=== PATIENT | female | born 1995 | race African-American/Black ===

== ENCOUNTER 2022-02-27 13:43 | Outpatient (CLI) | payer MEDICAID, SELFPAY ==
--- NOTE | 2022-02-27 14:00 | CRLHL7_ITS ---
For Patients: As a result of the Cures Act, medical imaging exams and procedure reports are released immediately into your electronic medical record. You may view this report before your referring provider. If you have questions, please contact your health care provider. INDICATION: First trimester scan, establish dates. COMPARISON: None. TECHNIQUE: Real-time black-scale imaging of the pelvis was performed. FINDINGS: Sonographic imaging demonstrates a single living intrauterine gestation. The embryo demonstrates a regular cardiac rate measuring 185-193 beats per minute. The embryo`s crown-rump length measurement of 2.0 cm corresponds to a gestational age of 8 weeks 4 days with a sonographic due date of 10/05/2022. There is a normal-appearing yolk sac. There are no gross abnormalities noted within the embryo at this early state of development. The gestational sac has a normal appearance. There is a 0.6 x 2.0 x 1.6 cm perigestational hemorrhage. The amount of fluid within the sac appears appropriate for gestational age. The cervix is closed. The myometrium appears normal. The ovaries are of normal size. Corpus luteal cyst right ovary. Simple right parovarian cyst measuring 2 cm. There are no suspicious fluid collections noted in the cul-de-sac. IMPRESSION: Single living intrauterine with sonographic gestational age 8 weeks 4 days and sonographic due date 10/05/2022. Subchorionic hemorrhage measuring 0.6 x 2.0 x 1.6 cm. Dictated by Roque Pearl MD @ 02/27/2022 3:28:34 PM (Electronically Signed)
== END 2022-02-27 13:44 | disposition home or self-care (01) ==
LOC: US 13:45
PROVIDERS: Visit Provider Advanced Practice Midwife
DX: Z34.91 Encounter for supervision of normal pregnancy, unspecified, first trimester (principal); O20.9 Hemorrhage in early pregnancy, unspecified; Z3A.08 8 weeks gestation of pregnancy
CPT/HCPCS: 76817; 86592; 86703; 86762; 86803; 86850; 86900; 86901; 87086; 87340; 87491; 87591

== ENCOUNTER 2022-07-17 13:55 | Outpatient (CLI) | payer MEDICAID, SELFPAY ==
--- NOTE | 2022-07-17 14:00 | CRLHL7_ITS ---
For Patients: As a result of the Century Cures Act, medical imaging exams and procedure reports are released immediately into your electronic medical record. You may view this report before your referring provider. If you have questions, please contact your health care provider. INDICATION: Third trimester scan, evaluate growth. COMPARISON: 02/27/2022 TECHNIQUE: Real time black scale imaging of the fetus was performed. FINDINGS: Sonographic imaging demonstrates a single living intrauterine gestation. Fetus demonstrates a regular cardiac rate of 150 beats per minute. Fetus has a vertex position. The placenta lies posteriorly. Amniotic fluid volume appears normal and there is a single deepest vertical pocket: 5.8 cm. The estimated weight is 1482gm which lies at the 96th %. BPD greater than 87th percentile. HC 94th percentile. AC 96th percentile. FL 50th percentile. The HC/AC ratio measures 1.07 range (0.97-1.18). IMPRESSION: Sonographic gestational age 30 weeks 2 days and sonographic due date 09/23/2022. Sonographic age 16 days ahead of the clinical age. Estimated weight 96th percentile. Abdominal circumference 96th percentile. BPD greater than 97th percentile. Dictated by Roque Pearl MD @ 07/20/2022 8:59:26 AM (Electronically Signed)
== END 2022-07-17 13:56 | disposition home or self-care (01) ==
LOC: US 13:55
PROVIDERS: PCP Family Medicine; Visit Provider Advanced Practice Midwife
DX: Z34.93 Encounter for supervision of normal pregnancy, unspecified, third trimester (principal); Z3A.30 30 weeks gestation of pregnancy
CPT/HCPCS: 76816; 86592

== ENCOUNTER 2022-08-19 12:11 | Outpatient (CLI) | payer MEDICAID, SELFPAY ==
--- NOTE | 2022-08-19 12:15 | CRLHL7_ITS ---
For Patients: As a result of the Century Cures Act, medical imaging exams and procedure reports are released immediately into your electronic medical record. You may view this report before your referring provider. If you have questions, please contact your health care provider. INDICATION: Third trimester scan, evaluate growth. COMPARISON: 07/17/2022 TECHNIQUE: Real time black scale imaging of the fetus was performed. FINDINGS: Sonographic imaging demonstrates a single living intrauterine gestation. Fetus demonstrates a regular cardiac rate of 138 beats per minute. Fetus has a vertex position. The placenta lies posteriorly. Amniotic fluid volume appears normal and there is a single deepest vertical pocket: 4.8 cm. The estimated weight is 2420gm which lies at the 88th %. On the prior OB ultrasound exam dated 07/17/2022 the estimated weight was at the 96th%. BPD 94th percentile. HC greater than 97th percentile. AC 95th percentile. FL 28th percentile. The HC/AC ratio measures 1.06 range (0.93-1.11). IMPRESSION: Sonographic gestational age 34 weeks 6 days and sonographic due date 09/24/2022. Sonographic age 15 days ahead of the clinical age. Estimated weight 88th percentile. Abdominal circumference 95th percentile. Dictated by Roque Pearl MD @ 08/19/2022 12:59:39 PM (Electronically Signed)
== END 2022-08-19 12:12 | disposition home or self-care (01) ==
LOC: US 12:12
PROVIDERS: PCP Family Medicine; Visit Provider Advanced Practice Midwife
DX: O36.63X0 Maternal care for excessive fetal growth, third trimester, not applicable or unspecified (principal); Z3A.34 34 weeks gestation of pregnancy
CPT/HCPCS: 76816

== ENCOUNTER 2022-08-28 08:33 | Outpatient (CLI) | payer MEDICAID, SELFPAY ==
--- NOTE | 2022-08-28 11:00 | CRLHL7_ITS ---
For Patients: As a result of the Century Cures Act, medical imaging exams and procedure reports are released immediately into your electronic medical record. You may view this report before your referring provider. If you have questions, please contact your health care provider. INDICATION: BMI greater than 40, history of macrosomia baby. TECHNIQUE: Ultrasound OB pelvis transabdominal, limited for biophysical profile. Real-time black-scale imaging of the fetus was performed without stress testing. COMPARISON: Obstetric ultrasound dated 08/19/2022. FINDINGS: Sonographic imaging demonstrates a single living intrauterine gestation. Fetus demonstrates a regular cardiac rate of 129 beats per minute. Fetus has a cephalic orientation. The placenta lies posteriorly. Amniotic fluid volume appears normal, single deepest pocket of 5.3 cm. Water Conservationist has noted motion, and tone, however respiratory activity was not observed. IMPRESSION: Biophysical profile of 01/21 (testing shaking shipping did not observe respiratory activity). Dictated by Makeda Vasquez MD @ 08/28/2022 12:50:38 PM (Electronically Signed)
--- NOTE | 2022-08-28 13:23 | PM.ANPROEV ---
[facility] Medical History (Updated 08/19/22 @ 13:37 by Socorro Preston CNM) History of delivery of macrosomal infant History of depression Obesity affecting Surgical History (Updated 03/14/22 @ 19:13 by Noemi Luong CNM) H/O tooth extraction Family History (Updated 03/14/22 @ 19:14 by Noemi Luong CNM) Mother Diabetes Maternal Grandmother CHF (congestive heart failure) Social History Smoking Status: Never smoker Little interest or pleasure in doing things: not at all Feeling down, depressed, or hopeless: not at all Meds Home Medications and Allergies Home Medications Medication Instructions Recorded Confirmed Type prenat.vits,salvador,[id number] 1 tab PO QDAY 02/27/22 08/28/22 History Allergies Allergy/AdvReac Type Severity Reaction Status Date / Time No Known Drug Allergies Allergy Verified 08/28/22 12:01 Focused Exam Airway Mallampti: II TM distance: >3 FB Anesthesia Risk Status Procedure Time Seen by Provider: 08:45 Date Seen: 08/28/22 Planned operative procedure(s): delivery History Anesthesia history: epidural History of anesthesia reactions: No Status Dentition: missing teeth (recent left lower molar removed) Risk Assessed to be at risk for difficult intubation: No Assessment and Plan Assessment and plan (1) Obesity affecting : Status: Acute (2) Supervision of other normal : Status: Acute Plan Third baby. epidural with previous 2. First they mentioned potential right sided curvature. they removed an epidural and restarted. This worked and she was comfortable. Second time no issues. due date 10/09. has been induced early in the past due to large baby. Planning epidural discussd timing and call coverage and potential difficult placement with increased BMI
== END 2022-08-28 08:34 | disposition home or self-care (01) ==
PROVIDERS: PCP Family Medicine; Visit Provider Anesthesiology
DX: O99.213 Obesity complicating pregnancy, third trimester (principal); O36.8390 Maternal care for abnormalities of the fetal heart rate or rhythm, unspecified trimester, not applicable or unspecified; Z3A.00 Weeks of gestation of pregnancy not specified
CPT/HCPCS: 76819

== ENCOUNTER 2022-09-04 12:09 | Outpatient (CLI) | payer MEDICAID, SELFPAY ==
--- NOTE | 2022-09-04 12:15 | CRLHL7_ITS ---
For Patients: As a result of the Century Cures Act, medical imaging exams and procedure reports are released immediately into your electronic medical record. You may view this report before your referring provider. If you have questions, please contact your health care provider. INDICATION: BMI <40; HX of macrosomic baby COMPARISON: 08/28/2022 TECHNIQUE: Real time black scale imaging of the fetus was performed. Without non-stress testing. FINDINGS: Sonographic imaging demonstrates a single living intrauterine gestation. Fetus demonstrates a regular cardiac rate of 131 beats per minute. Fetus has a vertex position. The amniotic fluid volume appears normal and there is a single deepest pocket measurement of 3.7 cm. The fetus was active and demonstrated normal breathing movements. There was normal flexion and extension of the trunk and extremities. IMPRESSION: Normal biophysical profile score of 8 out of 8. Dictated by Roque Pearl MD @ 09/04/2022 1:18:10 PM (Electronically Signed)
== END 2022-09-04 12:10 | disposition home or self-care (01) ==
PROVIDERS: PCP Family Medicine; Visit Provider Advanced Practice Midwife
DX: O36.63X0 Maternal care for excessive fetal growth, third trimester, not applicable or unspecified (principal)
CPT/HCPCS: 76819

== ENCOUNTER 2022-09-11 15:02 | Outpatient (CLI) | payer MEDICAID, SELFPAY ==
[2022-09-12 12:26] LABS: Strep B DNA Probe NEGATIVE (Negative)
[2022-09-12 13:46] LABS: Strep B Pen/Amox Allergy No
== END 2022-09-11 15:03 | disposition home or self-care (01) ==
LOC: NFLDREF 15:02
PROVIDERS: PCP Family Medicine; Visit Provider Advanced Practice Midwife
DX: Z34.83 Encounter for supervision of other normal pregnancy, third trimester (principal); Z3A.37 37 weeks gestation of pregnancy
CPT/HCPCS: 76816; 76819; 87081; 87653

== ENCOUNTER 2022-09-18 12:54 | Outpatient (CLI) | payer MEDICAID, SELFPAY ==
--- NOTE | 2022-09-18 13:00 | CRLHL7_ITS ---
For Patients: As a result of the Century Cures Act, medical imaging exams and procedure reports are released immediately into your electronic medical record. You may view this report before your referring provider. If you have questions, please contact your health care provider. INDICATION: BMI greater than 40 COMPARISON: 09/11/2022 TECHNIQUE: Real time black scale imaging of the fetus was performed. Without non-stress testing. FINDINGS: Sonographic imaging demonstrates a single living intrauterine gestation. Fetus demonstrates a regular cardiac rate of 138 beats per minute. Fetus has a vertex position. The amniotic fluid volume appears normal and there is a single deepest pocket measurement of 5.8 cm. The fetus was active and demonstrated normal breathing movements. There was normal flexion and extension of the trunk and extremities. IMPRESSION: Normal biophysical profile score of 8 out of 8. Dictated by Roque Pearl MD @ 09/19/2022 9:04:58 AM (Electronically Signed)
== END 2022-09-18 12:55 | disposition home or self-care (01) ==
LOC: US 12:55
PROVIDERS: PCP Family Medicine; Visit Provider Advanced Practice Midwife
DX: O99.213 Obesity complicating pregnancy, third trimester (principal); O36.63X0 Maternal care for excessive fetal growth, third trimester, not applicable or unspecified
CPT/HCPCS: 76819

== ENCOUNTER 2022-09-25 13:50 | Outpatient (CLI) | payer MEDICAID, SELFPAY ==
--- NOTE | 2022-09-25 14:00 | CRLHL7_ITS ---
For Patients: As a result of the Century Cures Act, medical imaging exams and procedure reports are released immediately into your electronic medical record. You may view this report before your referring provider. If you have questions, please contact your health care provider. INDICATION: BMI greater than 40. History of macrosomia with vacuum. COMPARISON: OB ultrasound 09/18/2022. TECHNIQUE: Real time black scale imaging of the fetus was performed without non-stress testing. FINDINGS: Sonographic imaging demonstrates a single living intrauterine gestation. The fetus demonstrates a regular cardiac rate of 131 beats per minute. The fetus has a cephalic orientation. The placenta lies posteriorly. Amniotic fluid volume appears normal with single deepest pocket measuring 6.0 cm (2/2). The fetus was active (2/2). There was normal flexion and extension of the trunk and extremities (2/2). At least 30 seconds of continuous breathing movements were not witnessed (0/2). IMPRESSION: Biophysical profile score 6 out of 8. Dictated by Alexandria Martinez MD @ 09/26/2022 8:49:31 PM (Electronically Signed)
== END 2022-09-25 13:51 | disposition home or self-care (01) ==
LOC: US 13:51
PROVIDERS: PCP Family Medicine; Visit Provider Advanced Practice Midwife
DX: O36.63X0 Maternal care for excessive fetal growth, third trimester, not applicable or unspecified (principal); O99.213 Obesity complicating pregnancy, third trimester; Z3A.38 38 weeks gestation of pregnancy
CPT/HCPCS: 76819

== ENCOUNTER 2022-09-29 06:58 | Inpatient (IN) | payer MEDICAID, SELFPAY ==
[2022-09-29] VITALS (13 sets, daily range): BP systolic 112–144; BP diastolic 57–79; PULSE 74–97; RESP 14–16; TEMP 36.7–37.4; O2SAT 96–98
[2022-09-29] MEDS: OXYTOCIN 10 UNIT/ML INJ IM (08:16)
[2022-09-29] MEDS: LIDOCAINE 1 % PF 30 ML INJECTION (08:30)
--- NOTE | 2022-09-29 09:28 | W.PM.LDBA ---
Subjective History of Present Illness Date Seen: 09/29/22 Narrative: Kelly is being admitted to Labor and Delivery for active labor. She is a 27 year old at 38 4/7 weeks gestation. Her full history and physical was done on 09/23/22 by Janes Preston CNM 1. Hx of macrosomic (1st) 9lb 15 oz @ 40.3 wks. Vacuum assisted for failure to descend. 39 wk IOL w/ 2nd baby, 8 lb 10 oz -growth at 36 wks -Consider IOL @ 39 weeks: scheduled for 10/02/2022 2. Hx of PP depression treated w/ sertraline after second baby 3. Starting BMI 41 -Anesthesia referral: completed -Level II:normal. EFW 93% -Growth ultrasound every 4 weeks starting at 28 weeks, per M. - 28 week growth US: FHR 150, SDP 5.8, EFW 96%ile. - 32 week growth US: FHR 138, SDP 4.8, EFW 88%ile -Weekly BPP at 34 weeks. -deliver by [facility] OB - Problem Based A/P Additional Plan (1) 38 weeks gestation of : Status: Acute (2) Pain during labor: Status: Acute Plan ASSESSMENT:? at 38.4 weeks gestation? GBS negative? Uncomplicated ? History of Macrosomia with vacuum extraction ?? PLAN:? 1. Candidate for analgesia of choice. Planning epidural. 2. Anticipate ? 3. Expectant management at this time.? 4. IV placement for epidural. 5. Intermittent monitoring as able per unit policy. Delivery/Labor/Induction Plan Plan: expectant management OB Result Labs Blood Type: A (+) positive GBS Status: negative OB Exam Physical Exam Vital signs: Pulse BP 75 128/62 09/29/22 09:15 09/29/22 09:15 Narrative: Vitals per EMR? Psychiatric:? Alert and oriented x3? HEENT:? Normocephalic, atraumatic? Neck:? Supple without adenopathy or thyromegaly? Lungs:? Clear to auscultation bilaterally? Heart:? Regular rate and rhythm, no murmur, rub or gallop? Abdomen:? Soft, nontender, and gravid? Extremities:? No edema or erythema? Pelvic:? SVE: 8cm per RN Membrane status:? intact presentation:? vertex? FHT:? difficult to trace, FHR 120's, pt very uncomfortable and unable to sit still for monitoring [place]:? Ctx Q 2-3min? Detailed Labor and Delivery Exam Patient Gravid: Yes Dilation (cm): 8 Contraction Frequency: 2-3 Fetus (Single) Amniotic Membrane Status: intact
[2022-09-29] MEDS: IBUPROFEN 600 MG TABLET PO ×2 (09:30→16:08)
[2022-09-29 09:36] LABS: SARS PCR* POSITIVE SARS-CoV-2 (Negative)
--- NOTE | 2022-09-29 09:40 | PM.OBPRCVD ---
Procedure Delivery date: 09/29/22 Procedure Done: Global Procedure Details: Patient is a 27 year-old G3 now P3 admitted on 09/29/2022 at 38 Weeks, 4 Days gestation for active labor.? Cervical exam on admission was 8 cm per nursing with membranes intact in vertex presentation.? Contractions were every 2-3 minutes.? heart rate was difficult to trace related to patient discomfort and not able to sit for monitoring, FHR obtained was 120, not enough traced to categorize.? SROM occurred at 0745 with clear fluid.? ?? Labor Analgesia:? None? ?? Pitocin:? yes for AMSTL? ?? Labor onset:? 09/29/22 at 0300? ?? Complete:? 0715? ?? Pushing:? 0732? ?? heart tones during second stage were not obtained see note above.? ?? At 0752 a viable male infant delivered in vertex OA presentation over intact perineum via spontaneous vaginal delivery.? Infant was placed on maternal abdomen.? Cord was clamped and cut after > 5 minute delay.? Nose and mouth were bulb suctioned.? weight 8lb 2oz.? 7 at 1 minute and 8 at 5 minutes.? Shoulder dystocia: no.? Nuchal cord: yes, easily reduced loose and true knot in cord observed.? ?? Placenta delivered spontaneously and complete at 0812 with a 3 vessel cord.? ?? Mother and infant were stable after delivery.? ?? Lacerations:? first degree, repaired with 3.0 vicryl.? ?? Blood loss: 100 mL.? Blood loss measurement type: QBL? Sponge and needles counts are correct.? Ronit Hernandez SN with supervision by Annetta Hernandez CNM Intrapartal Events: None Delivery monitor: external FHT and external uterine Route of delivery: Episiotomy description: None Laceration description: Perineal - 1st Degree Delivery repair: Vicryl Estimated blood loss (mL): 100 Anesthesia type: None Disposition: floor Gender: Male presentation: vertex Placental Delivery Description: Spontaneous Cord Description: 3 Vessels, Nuchal Cord, True Knot, Loose and Reduced OB Vag Delivery Procedures Additional Procedures ECV: No Cook Catheter Insertion: No NST: No D&C: No Laceration Repair: Yes Tubal Ligation : No Other: No
[2022-09-30 00:43] VITALS: BP 120/74; PULSE 91; RESP 16; TEMP 36.7; O2SAT 95
[2022-09-30 04:39] VITALS: BP 124/78; PULSE 94; RESP 16; TEMP 36.9; O2SAT 95
--- NOTE | 2022-09-30 08:02 | P.DS_ITS ---
DS: Providers Provider Date Seen: 09/30/22 Date of admission: 09/29/22 06:58 Primary care physician: Chikis Weinstein MD Admitting Clinician: Noemi Luong CNM Attending Physician on discharge: Annetta Hernandez CNM Date of Discharge: 09/30/22 Exam Narrative: Exam Narrative: Discharge Examination? GENERAL APPEARANCE:? normal affect, alert, no distress? MOOD:? appropriate? CHEST:? clear to auscultation and percussion? HEART:? regular rate and rhythm? ABDOMEN:? soft, non-tender the uterine fundus is 2 cm Below Umbilicus, Midline and is appropriate for the stage of recovery.? PERINEUM:? mild edema of the perineum, there is a 1st degree that is healing well.? EXTREMITIES:? normal and no edema? Patient has no complaints? No active bleeding?? Doing well? She is requesting discharge home.? Const: Vital Signs, click to edit/add: Vital Signs - 24 hr 09/29/22 08:03 09/29/22 08:13 09/29/22 08:30 Temperature Pulse Rate 90 75 88 Pulse Rate [Pulse Oximeter] Respiratory Rate Blood Pressure 120/69 117/66 123/60 Blood Pressure [Le ft Arm] Pulse Oximetry Oxygen Delivery Me thod 09/29/22 08:45 09/29/22 09:00 09/29/22 09:15 Temperature Pulse Rate 83 97 75 Pulse Rate [Pulse Oximeter] Respiratory Rate Blood Pressure 123/57 L 144/63 H 128/62 Blood Pressure [Le ft Arm] Pulse Oximetry Oxygen Delivery Fl thod 09/29/22 09:30 09/29/22 09:45 09/29/22 10:00 Temperature Pulse Rate 89 79 77 Pulse Rate [Pulse Oximeter] Respiratory Rate Blood Pressure 116/63 123/70 123/72 Blood Pressure [Le ft Arm] Pulse Oximetry Oxygen Delivery Fl thod 09/29/22 10:15 09/29/22 11:15 09/29/22 08:13 Temperature 98.0 F 98.0 F Pulse Rate 74 Pulse Rate [Pulse Oximeter] 80 Respiratory Rate 14 Blood Pressure 126/57 L Blood Pressure [Le ft Arm] 122/67 Pulse Oximetry 98 Oxygen Delivery Fl thod Room Air 09/29/22 08:30 09/29/22 08:45 09/29/22 16:00 Temperature 98.4 F Pulse Rate Pulse Rate [Pulse Oximeter] 88 83 81 Respiratory Rate 16 16 14 Blood Pressure Blood Pressure [Le ft Arm] 123/60 123/57 L 112/77 Pulse Oximetry 98 98 Oxygen Delivery Me thod Room Air 09/29/22 20:46 09/30/22 00:43 09/30/22 04:39 Temperature 99.4 F 98.1 F 98.5 F Pulse Rate Pulse Rate [Pulse Oximeter] 94 91 94 Respiratory Rate 16 16 16 Blood Pressure Blood Pressure [Le ft Arm] 121/79 120/74 124/78 Pulse Oximetry 96 95 95 Oxygen Delivery Me thod Room Air Room Air Room Air OB - DS: Summary Hospital Course Hospital Course: Patient is a 27year old, G 3 now P 3? admitted on 09-29-22 at 38 Weeks, 4 Days gestation for active labor.? She had an uncomplicated vaginal delivery.? She delivered a viable male .? She is bottle feeding and reports things are well. the patient has done well.? Her pain is well controlled with current medications.? She has no new complaints.? Vitals have been stable. She has remained afebrile. She is voiding without difficulty. She is passing gas and has had a bowel movement. She is ambulating and denies any dizziness. She is planning depo shot for control.??? Peripartum Data delivery method: Vaginal Laceration description: Perineal - 1st Degree Episiotomy description: None complications: none Infant Gender: Male Discharge Plan: Home Time Spent with Patient Time attestation: Total time spent providing and/or coordinating discharge services: Discharge Plan Discharge Disposition: Home, Self-Care Date of Admission: 09/29/22 06:58 Attending Provider on Discharge: Annetta Hernandez Primary Care Provider: Chikis Weinstein Condition: Stable Anticipated Discharge Date/Time: 09/30/22 10:00 Discharge Medications: New docusate sodium 100 mg Capsule 100 mg PO DAILY Qty: 60 0RF Rx Instructions: Take 1-2 tablets daily as needed for constipation. ibuprofen 600 mg Tablet 600 mg PO Q6H PRNQty: 60 0RF Continued prenat.vits,salvador,[id number] Tablet 1 tab PO QDAY Discharge Orders: Discharge Order (Routine); Ordered 09/30/22 Ordered By: Annetta Hernandez Additional Instructions: Discharge instructions were reviewed with the patient including signs and symptoms of infection and home going medications.? Lifting Restrictions: 10 pounds for 6? weeks? ?? Do not drive while taking narcotic pain meds.? Off Work or School for 6 weeks.? ?? Symptoms to report to doctor:? -Bleeding that saturates more than one pad per hour? -Passing clots larger than the size of a golf ball? -Pain not relieved by prescribed medication? -Fever above 100.4 degrees Fahrenheit? -A foul vaginal odor? -Difficulty in emotions, mood and functions? -Thoughts of hurting yourself and/or ? -Painful, reddened area in your breast? -Any drainage, redness or tenderness in your IV/epidural site? -Severe headache that doesn't improve after taking medications? -Changes in vision, including temporary loss of vision, blurred vision, and/or light sensitivity? -Upper abdominal pain (usually under ribs on the right side)? -Decrease in urination or painful, frequent urinating? -Chest pain? -Shortness of breath? -Tenderness or pain with redness and/swelling in the calf(s) of your leg? ?? Follow Up in clinic in 2 and 6 weeks.? ?? consultation services are available to all mothers and babies for the first year after delivery.? To make an appointment, please call [phone].? Activity Level: No Restrictions Follow Up Appointments: [facility] [Provider Group] Forms: [employer] Info Instructions
[2022-09-30] MEDS: DOCUSATE SODIUM 100 MG CAPSULE PO (08:33)
[2022-09-30 08:34] VITALS: BP 119/65; PULSE 84; RESP 16; TEMP 36.6; O2SAT 96
== END 2022-09-30 11:00 | disposition home or self-care (01) | DRG 807 ==
LOC: OB OUT 07:01 → OB 07:01
PROVIDERS: Advanced Practice Midwife; Admitting Provider Advanced Practice Midwife; PCP Family Medicine; Visit Provider Advanced Practice Midwife
DX: O70.0 First degree perineal laceration during delivery (principal); Z37.0 Single live birth; Z3A.38 38 weeks gestation of pregnancy; F32.A Depression, unspecified; O99.344 Other mental disorders complicating childbirth
CPT/HCPCS: 87426; 87635; A9270; J2001; J2590

== ENCOUNTER 2023-01-30 11:10 | Emergency (ER) | payer MEDICAID, SELFPAY ==
[2023-01-30 11:33] VITALS: BP 150/82; PULSE 93; RESP 18; TEMP 36.8; O2SAT 100; BMI 36.9
--- NOTE | 2023-01-30 11:43 | CRLHL7_ITS ---
For Patients: As a result of the Century Cures Act, medical imaging exams and procedure reports are released immediately into your electronic medical record. You may view this report before your referring provider. If you have questions, please contact your health care provider. INDICATION: ruq pain, vomit/nausea. multiple mobile shadowing foci noted within GB. panc duct noted. HISTORY: Vomiting. Nausea. Right upper quadrant abdominal pain. COMPARISON: None. TECHNIQUE: Ultrasound of the abdomen limited. Findings: The pancreas is normal where visualized. There is no peripancreatic fluid collection. IVC and abdominal aorta are normal. There is no solid hepatic mass. The liver measures 15.9 cm in length. No perihepatic ascites. Non cirrhotic liver morphology. The right kidney measures 10.7 cm in length. There is no hydronephrosis, solid mass, or perinephric fluid. Mobile gallstones are noted. No secondary signs for cholecystitis. The common bile duct measures 3-4 mm. Impression: 1. Cholelithiasis. 2. No secondary signs for cholecystitis. 3. Normal caliber biliary tree. 4. The main pancreatic duct was measured at 2.8 mm. This is in the range of normal. There is no pancreatic mass or glandular atrophy by ultrasound. Dictated by Shahzad Amaya MD @ 01/30/2023 1:54:25 PM Dictated by: Shahzad Amaya MD @ 01/30/2023 13:54:33 (Electronically Signed)
--- NOTE | 2023-01-30 11:45 | ED_ITS ---
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 She has only eaten since last night. She has been generally quite healthy, she has had history of right hip pain sciatica and delivered a baby about 3 months ago. She has had no leg swelling edema bleeding or clotting problems, no chest pain or shortness of breath. The patient has not been sick with a viral type illness. She denies trauma or injury. Related Data Home Medications Medication Instructions Recorded Confirmed prenat.vits,salvador,[id number] 1 tab PO QDAY 02/27/22 11/10/22 Allergies Allergy/AdvReac Type Severity Reaction Status Date / Time No Known Drug Allergies Allergy Verified 11/10/22 13:21 Review of Systems Status of ROS: Reports: 6 or more systems reviewed and unremarkable except as noted in History and below [facility] Medical History 38 weeks gestation of ?Z3A.38 - 38 weeks gestation of (ICD-10) Obesity affecting ?O99.210 - Obesity complicating , unspecified trimester (ICD-10) History of delivery of macrosomal ?Z87.59 - Personal history of other complications of , childbirth and the puerperium (ICD-10) History of depression ?Z87.59 - Personal history of other complications of , childbirth and the puerperium (ICD-10) ?Z86.59 - Personal history of other mental and behavioral disorders (ICD-10) Surgical History H/O tooth extraction ?K08.409 - Partial loss of teeth, unspecified cause, unspecified class (ICD- 10) Family History Mother Diabetes Maternal Grandmother CHF (congestive heart failure) Social History Smoking Status: Never smoker How often do you have a drink containing alcohol: monthly or less How often do you have six or more drinks on one occasion: Never AUDIT-C Alcohol total score: 1 Non-prescribed substance use: denies use Little interest or pleasure in doing things: not at all Feeling down, depressed, or hopeless: not at all Exam Narrative: Exam Narrative: Objective: Vital signs show slightly elevated blood pressure otherwise unremarkable In general patient apparent distress HEENT is unremarkable Pulse regular Chest is clear pulses regular Abdomen is tender in the right upper quadrant mild discomfort over the ribcage as well right lower chest Extremities are no edema neurologic nonfocal Good peripheral perfusion Const: Vital Signs, click to edit/add: Vital Signs - 24 hr 01/30/23 13:18 Pulse Rate [Right Pulse Oximeter] 89 Pulse Oximetry 99 Oxygen Delivery Me thod Room Air Course Vital Signs Vital signs: Initial Vital Signs Temperature 98.2 F 01/30/23 11:33 Temperature Source Temporal Artery Scan 01/30/23 11:33 Pulse Rate 93 01/30/23 11:33 Respiratory Rate 18 01/30/23 11:33 Blood Pressure 150/82 H 01/30/23 11:33 Blood Pressure Mean 104 01/30/23 11:33 Blood Pressure Position Sitting 01/30/23 11:33 Pulse Oximetry 100 01/30/23 11:33 Oxygen Delivery Method Room Air 01/30/23 11:33 Vital Signs Temperature 98.2 F 01/30/23 11:33 Pulse Rate 93 01/30/23 11:33 Respiratory Rate 18 01/30/23 11:33 Blood Pressure 150/82 H 01/30/23 11:33 Pulse Oximetry 100 01/30/23 11:33 Oxygen Delivery Method Room Air 01/30/23 11:33 Temperature 98.2 F 01/30/23 11:33 Pulse Rate 89 01/30/23 13:18 Respiratory Rate 18 01/30/23 11:33 Blood Pressure 150/82 H 01/30/23 11:33 Pulse Oximetry 99 01/30/23 13:18 Oxygen Delivery Method Room Air 01/30/23 13:18 Medical Decision Making MDM Narrative Medical decision making narrative: 27-year-old female with right upper quadrant pain lower chest wall pain. I think an ultrasound to rule out cholecystitis be appropriate or cholelithiasis. I think also laboratory studies would be appropriate. This could certainly be chest wall discomfort and costochondritis as well, but I think she has definit ed tenderness in her right upper quadrant to palpation, no palpable mass. I think ruling out a gallbladder should be quite appropriate. Will give her IV fluid IV pain medicine and check labs as above. Disposition pending findings. Lab Data Labs: Lab Results 01/30/23 Range/Units 12:40 WBC 9.57 (4.50-11.00) K/uL RBC 4.73 (4.00-5.20) m/uL Hgb 14.2 (12.0-16.0) gm/dL Hct 41.8 (33.0-51.0) % MCV 88 (80-100) fL MCH 30 (26-34) pg MCHC 34 (32-36) gm/dL RDW Coeff of Samanta 13.2 (11.5-15.5) % Plt Count 297 (140-440) K/uL Neut % (Auto) 76.9 H (42.0-72.0) % Lymph % (Auto) 14.6 L (20-44) % [place] % (Auto) 6.9 (0.0-11.0) % Eos % (Auto) 1.3 (0.0-7.0) % Baso % (Auto) 0.2 (0.0-3.0) % Neut # (Auto) 7.40 H (1.7-7.0) K/uL Lymph # (Auto) 1.40 (0.90-2.90) K/uL [place] # (Auto) 0.70 (0.00-0.90) K/UL Eos # (Auto) 0.12 (0.00-0.50) K/uL Baso # (Auto) 0.02 (0.00-0.30) K/uL Sodium 133 L (135-149) mmol/L Potassium 3.9 (3.6-5.1) mmol/L Chloride 106 (96-114) mmol/L Carbon Dioxide 24 (20-32) mmol/L BUN 10 (5-24) mg/dL Creatinine 0.7 (0.5-1.5) mg/dL Estimated Creat Clear 123.93 Estimated GFR 120 ml/min Glucose 88 (60-115) mg/dL Calcium 9.2 (8.4-10.6) mg/dL Total Bilirubin 1.5 (0.1-1.5) mg/dL Direct Bilirubin 0.5 (0.0-0.5) mg/dL AST 378 H (12-35) U/L ALT 231 H (4-35) U/L Alkaline Phosphatase 86 (40-150) U/L C-Reactive Protein 1.2 H (0.5-1.0) mg/dL Total Protein 7.4 (6.0-8.3) g/dL Albumin 4.1 (3.3-5.0) g/dL Amylase 52 (18-89) U/L HCG, Qual Negative (Negative) HCG, Quant Cancelled Discharge Plan Discharge Clinical Impression: Abdominal pain, Elevated liver function tests, Cholelithiasis Patient Disposition: Home w/ Parent or Adult Condition: Improved Additional Instructions: Light low-fat diet, recheck with primary care in the next 2-3 days. We recommend repeat your liver function test. Return if problems or concerns. Activity Level: Light activity Discharge Diet: Low Fat/Low Cholesterol Prescriptions: No Action prenat.vits,salvador,[id number] Tablet 1 tab PO QDAY Follow Up/Referrals: Chikis Weinstein MD [Primary Care Provider] - Stand Alone Forms: [employer]th Info Instructions
[2023-01-30 12:06] VITALS: O2SAT 100
[2023-01-30] MEDS: MORPHINE 4 MG/ML INJ 2 MG IVP (12:11)
[2023-01-30] MEDS: 0.9 % SODIUM CHLORIDE 1000 ml 1,000 ML 6000 ML IV (12:11)
[2023-01-30 12:47] LABS: Basophils Absolute Auto 0.02 K/uL (0.00-0.30); Basophils Percent Auto 0.2 % (0.0-3.0); Eosinophils Absolute Auto 0.12 K/uL (0.00-0.50); Eosinophils Percent Auto 1.3 % (0.0-7.0); Hematocrit 41.8 % (33.0-51.0); Hemoglobin* 14.2 gm/dL (12.0-16.0); Immature Granulocytes Abs Auto 0.01 K/uL (0.00-0.30); Immature Granulocytes Pct Auto 0.1 %; Lymphocytes Percent Auto 14.6 % (20-44); Mean Corpuscular HGB Conc 34 gm/dL (32-36); Mean Corpuscular Hemoglobin 30 pg (26-34); Mean Corpuscular Volume 88 fL (80-100); Monocytes Percent Auto 6.9 % (0.0-11.0); Neutrophils Percent Auto 76.9 % (42.0-72.0); Platelet Count* 297 K/uL (140-440); RDW Coefficient of Variation % 13.2 % (11.5-15.5); Red Blood Count 4.73 m/uL (4.00-5.20); White Blood Count* 9.57 K/uL (4.50-11.00)
[2023-01-30 12:58] LABS: Slide Review Reflex No
[2023-01-30 13:01] LABS: Albumin* 4.1 g/dL (3.3-5.0); Chloride* 106 mmol/L (96-114)
[2023-01-30 13:02] LABS: Potassium* 3.9 mmol/L (3.6-5.1); Sodium* 133 mmol/L (135-149)
[2023-01-30 13:04] LABS: Amylase* 52 U/L (18-89); Aspartate Amino Transferase* 378 U/L (12-35); Bilirubin Direct* 0.5 mg/dL (0.0-0.5); Bilirubin Total* 1.5 mg/dL (0.1-1.5); Blood Urea Nitrogen* 10 mg/dL (5-24); Carbon Dioxide* 24 mmol/L (20-32); Creatinine* 0.7 mg/dL (0.5-1.5); Est. Creatinine Clearance* 123.93; Estimated Glomerular Filt Rate 120 ml/min; Total Protein* 7.4 g/dL (6.0-8.3)
[2023-01-30 13:05] LABS: Alanine Aminotransferase* 231 U/L (4-35); Alkaline Phosphatase* 86 U/L (40-150); Calcium* 9.2 mg/dL (8.4-10.6); Glucose* 88 mg/dL (60-115)
[2023-01-30 13:07] LABS: C Reactive Protein* 1.2 mg/dL (0.5-1.0)
[2023-01-30 13:18] VITALS: PULSE 89; O2SAT 99
[2023-01-30 13:26] LABS: HCG Qualitative Serum* Negative (Negative)
== END 2023-01-30 14:22 | disposition home or self-care (01) ==
PROVIDERS: Emergency Provider Family Medicine; PCP Family Medicine
DX: K80.20 Calculus of gallbladder without cholecystitis without obstruction (principal); R94.5 Abnormal results of liver function studies
CPT/HCPCS: 36415; 76705; 80048; 80076; 82150; 84702; 84703; 85025; 86140; 94761; 96374; 99284; J2270; J7030